=== PATIENT | female | born 1985 | race Two or more races ===

== ENCOUNTER 2022-04-25 10:28 | Emergency (ER) | payer MEDICAID ==
[~2022-04-25] VITALS: Ht 172.7 cm; Wt 65.5 kg
[2022-04-25 12:58] VITALS: BP 136/86
[2022-04-25] MEDS ORDERED: ERY05OO OP (13:05)
[2022-04-25] MEDS ORDERED: CARB4TAB8 PO (13:05)
[2022-04-25] MEDS ORDERED: PRED20TA2 PO (13:05)
[2022-04-25] MEDS ORDERED: diphenhdrAMINE HCL 50 MG/1 ML VL IM ONE (13:15)
[2022-04-25] MEDS ORDERED: methylPREDNISolone SOD SUCC 125 MG/2 ML VL IM ONE (13:15)
== END 2022-04-25 14:20 | disposition home or self-care (01) ==
LOC: ER 10:28
DX: T78.40XA Allergy, unspecified, initial encounter (principal); X58.XXXA Exposure to other specified factors, initial encounter
CPT/HCPCS: 96372; 99284; J1200; J2930

== ENCOUNTER 2022-06-28 09:19 | Emergency (ER) | payer MEDICAID ==
[~2022-06-28] VITALS: Ht 152.4 cm; Wt 63.9 kg
[~2022-06-28 09:19] MED LIST: CARB4TAB8 PO; ERY05OO OP; PRED20TA2 PO
[2022-06-28 13:22] LABS: Urine Bacteria FEW /hpf (None Seen); Urine Blood Negative /uL (Negative); Urine Mucus FEW (None Seen); Urine Specific Gravity 1.029 (1.001-1.035); Urine WBC 9 /hpf (0 - 5)
[2022-06-28] MEDS ORDERED: cefTRIAXone SOD 1,000 MG VL IM ONE (14:15)
[2022-06-28] MEDS ORDERED: CIPR500T4 PO (14:17)
[2022-06-28 14:31] VITALS: BP 114/71
[2022-06-29] MEDS ORDERED: NITR-87 PO (15:47)
== END 2022-06-28 14:56 | disposition home or self-care (01) ==
LOC: ER 09:19
DX: N39.0 Urinary tract infection, site not specified (principal); Z32.02 Encounter for pregnancy test, result negative
CPT/HCPCS: 81001; 81025; 96372; 99283; J0696

== ENCOUNTER 2022-06-29 13:54 | Emergency (ER) | payer MEDICAID ==
[~2022-06-29] VITALS: Ht 152.4 cm; Wt 65.0 kg
[~2022-06-29 13:54] MED LIST changes: +CIPR500T4 PO
[2022-06-29] MEDS ORDERED: NITR-87 PO (15:47)
[2022-06-29 15:56] VITALS: BP 109/63
== END 2022-06-29 15:56 | disposition home or self-care (01) ==
LOC: ER 13:54
DX: M54.50 Low back pain, unspecified (principal); N39.0 Urinary tract infection, site not specified; Z98.51 Tubal ligation status
CPT/HCPCS: 72131

== ENCOUNTER 2022-09-07 10:54 | Emergency (ER) | payer MEDICAID ==
[~2022-09-07] VITALS: Ht 154.9 cm; Wt 62.6 kg
[~2022-09-07 10:54] MED LIST changes: +NITR-87 PO
[2022-09-07 11:26] VITALS: BP 128/81
== END 2022-09-07 13:49 | disposition home or self-care (01) ==
LOC: ER 10:54
DX: H00.012 Hordeolum externum right lower eyelid (principal)